=== PATIENT | male | born 1945 | race Caucasian/White ===

== ENCOUNTER 2021-03-26 14:38 | Emergency (ER) | payer MEDICARE ==
[~2021-03-26 14:38] MED LIST: LISINOPRIL-HCT1 EAC1 PO; PRILOSEC20 MG PO
[2021-03-26] MEDS ORDERED: PEPCID AC20 MG PO (18:02)
== END 2021-03-26 18:11 | disposition home or self-care (01) ==
LOC: FER 14:38
DX: T63.441A Toxic effect of venom of bees, accidental (unintentional), initial encounter (principal); I10 Essential (primary) hypertension; F17.220 Nicotine dependence, chewing tobacco, uncomplicated
CPT/HCPCS: J1200; J2930; J7030